=== PATIENT | female | born 1985 | race Two or more races ===

== ENCOUNTER 2017-05-14 18:31 | Emergency (ER) | payer SELFPAY ==
[~2017-05-14] VITALS: Ht 177.8 cm; Wt 75.3 kg
[2017-05-14] MEDS ORDERED: ROXICODONE5 MG PO (22:05)
[2017-05-14] MEDS ORDERED: TYLENOL EXTRA500 MG PO (22:05)
[2017-05-14 22:24] VITALS: BP 140/101
== END 2017-05-14 22:25 | disposition home or self-care (01) ==
LOC: EME 18:31
DX: S40.012A Contusion of left shoulder, initial encounter (principal); W20.8XXA Other cause of strike by thrown, projected or falling object, initial encounter; Y92.008 Other place in unspecified non-institutional (private) residence as the place of occurrence of the external cause; Z88.0 Allergy status to penicillin; Z88.6 Allergy status to analgesic agent
CPT/HCPCS: 71020; 73000; 93005; 99281; 99284